=== PATIENT | female | born 1945 | race Hispanic/Latino ===

== ENCOUNTER 2022-09-28 10:39 | Outpatient (CLI) | payer MEDICARE | END 2022-09-28 10:40 | disposition home or self-care (01) | LOC: CSHMRI 10:39 | PROVIDERS: ATTEND Family Medicine | DX: M53.3 Sacrococcygeal disorders, not elsewhere classified (principal); M47.816 Spondylosis without myelopathy or radiculopathy, lumbar region; M47.817 Spondylosis without myelopathy or radiculopathy, lumbosacral region; R93.7 Abnormal findings on diagnostic imaging of other parts of musculoskeletal system | CPT/HCPCS: 72148 ==

== ENCOUNTER 2023-06-08 11:46 | Emergency (ER) | payer MEDICARE ==
[~2023-06-08 11:46] MED LIST: Iopamidol 370 76% 100 ML VIAL ONE
[2023-06-08 12:44] LABS: #Monocytes 1.3 10x3/uL (0.0-1.1); #Neutrophils 6.6 10x3/uL (1.5-8.4); %Basophils 0.1 % (0.0-2.0); %Eosinophils 0.2 % (0.0-6.0); %Lymphocytes 15.3 % (18.0-47.0); %Monocytes 13.3 % (0.0-10.0); %Neutrophils 70.8 % (40.0-75.0); Hematocrit 40.2 % (34.9-44.5); Hemoglobin 14.4 g/dL (12.0-15.5); Mean Corpuscular HGB CONC 35.8 g/dL (32.0-36.0); Mean Corpuscular Hemoglobin 32.8 pg (27.0-33.0); Mean Corpuscular Volume 91.6 fl (81.6-98.3); Mean Platelet Volume 10.8 fl (7.4-10.4); Platelet Count 155 10x3/uL (150-450); RBC Distribution Width 11.9 % (11.5-14.5); Red Blood Cell (RBC) Count 4.39 10x6/uL (3.90-5.03); White Blood Cell (WBC) Count 9.4 10x3/uL (3.5-10.5)
[2023-06-08] MEDS ORDERED: Aspirin Chewable 81 MG TAB ONE (12:47)
[2023-06-08 13:13] LABS: ALT (SGPT) 46 U/L (8-55); AST (SGOT) 62 U/L (5-34); Albumin 3.9 g/dL (3.4-4.8); Alkaline Phosphatase 70 U/L (40-110); Anion Gap 14 mmol/L (10-20); BUN (Urea Nitrogen) 12 mg/dL (9.8-20.1); Bilirubin, Total 1.1 mg/dL (0.2-1.2); Calc. Creatinine Clearance 0 mL/min (70-130); Calcium 8.8 mg/dL (7.8-10.44); Carbon Dioxide 23 mmol/L (23-31); Chloride 101 mmol/L (98-107); Estimated GFR 91; Glucose 112 mg/dL (83-110); Lipase 7 U/L (8-78); Potassium 3.4 mmol/L (3.5-5.1); Protein, Total 6.9 g/dL (5.8-8.1); Sodium 135 mmol/L (136-145)
[2023-06-08 13:35] LABS: Troponin I 4.094 ng/mL (< 0.028)
[2023-06-08] MEDS ORDERED: Heparin 25,000 units/D5W 500 ML ONE (13:48)
[2023-06-08 14:14] LABS: PTT 29.3 sec (22.0-33.0); Prothrombin Time 10.9 sec (9.5-12.1)
[2023-06-08] MEDS ORDERED: Heparin 10,000 UNITS/ 10 ML VIAL SLOW IVP SCH (14:15)
== END 2023-06-08 16:05 ==
LOC: CSHERS 11:46
DX: I21.4 Non-ST elevation (NSTEMI) myocardial infarction (principal); I10 Essential (primary) hypertension; Z20.822 Contact with and (suspected) exposure to COVID-19
CPT/HCPCS: 71045; 71275; 80053; 83690; 83880; 84443; 84484; 85025; 85610; 85730; 93005; 96365; 96366; 96376; J1644; Q9967

== ENCOUNTER 2024-05-01 09:02 | Outpatient (CLI) | payer MEDICARE, OTHER ==
[2024-05-01] MEDS ORDERED: Iopamidol 300 61% 100 ML VIAL FS ONE (10:20)
== END 2024-05-01 09:03 | disposition home or self-care (01) ==
LOC: CSHCT 09:02
PROVIDERS: ATTEND Urology
DX: R31.0 Gross hematuria (principal); K57.30 Diverticulosis of large intestine without perforation or abscess without bleeding; I70.0 Atherosclerosis of aorta; I71.02 Dissection of abdominal aorta; Z95.828 Presence of other vascular implants and grafts
CPT/HCPCS: 36415; 74178; 82565